=== PATIENT | male | born 1945 | race Two or more races ===

== ENCOUNTER 2019-10-30 20:22 | Emergency (ER) | payer OTHER ==
[~2019-10-30] VITALS: Ht 175.3 cm; Wt 88.9 kg
[2019-10-30 20:33] VITALS: Ht 175.3 cm; Wt 88.9 kg
[2019-10-30 21:20] LABS: BASOPHIL % 0.3 % (0-2); PLATELET COUNT 143 x10^3mcL (130-400); RED CELL DISTRIBUTION WIDTH 12.8 % (11.5-14.5)
[2019-10-30 21:33] LABS: CALCIUM 8.6 mg/dL (8.5-10.1); CARBON DIOXIDE 27.8 mmol/L (21-32); CHLORIDE SERUM 97 mmol/L (98-107); GLUCOSE SERUM 103 mg/dL (74-106); POTASSIUM SERUM 4.6 mmol/L (3.5-5.1); SODIUM SERUM 130 mmol/L (136-145)
[2019-10-30 21:37] LABS: ALKALINE PHOSPHATASE 36 U/L (46-116); ALT/SGPT 40 U/L (16-63); AST/SGOT 16 U/L (15-37); BILIRUBIN TOTAL 0.8 mg/dL (0.20-1.00)
[2019-10-30 21:40] LABS: CHOLESTEROL 111 mg/dL (<200)
[2019-10-31 00:39] VITALS: BP 166/90
== END 2019-10-31 00:39 | disposition home or self-care (01) ==
LOC: ED 20:22
PROVIDERS: Specialist
DX: S00.83XA Contusion of other part of head, initial encounter (principal); S22.41XA Multiple fractures of ribs, right side, initial encounter for closed fracture; W01.0XXA Fall on same level from slipping, tripping and stumbling without subsequent striking against object, initial encounter; Y93.89 Activity, other specified; Y92.89 Other specified places as the place of occurrence of the external cause; Y99.8 Other external cause status; I10 Essential (primary) hypertension; Z98.890 Other specified postprocedural states
CPT/HCPCS: 36415; G0480; Q0092